=== PATIENT | female | born 1985 | race Caucasian/White ===

== ENCOUNTER 2019-11-06 11:25 | Inpatient (IN) | payer MEDICAID ==
[~2019-11-06] VITALS: Ht 167.6 cm; Wt 66.7 kg
[2019-11-06] MEDS ORDERED: METHYLERGONOVINE 0.2 MG/ML AMP IM PRN (12:15)
[2019-11-06] MEDS ORDERED: CARBOPROST 250 MCG/ML AMP IM PRN (12:15)
[2019-11-06 12:57] VITALS: BP 116/76
[2019-11-06 13:33] LABS: APPEARANCE,URINE HAZY (CLEAR); BILIRUBIN,URINE NEGATIVE (NEGATIVE); BLOOD, URINE NEGATIVE (NEGATIVE); COLOR,URINE YELLOW (YELLOW); LEUKOCYTE ESTERASE ,URINE 1+ (NEGATIVE); NITRITE, URINE NEGATIVE (NEGATIVE); PH,URINE 5.5 (5.0-9.0); UGLUCOSE NEGATIVE (NEGATIVE)
[2019-11-06] MEDS: MISOPROSTOL 25 MCG TAB VG SCH (13:43)
[2019-11-06 13:44] LABS: BASOPHILS % (AUTO) 0.5 % (0.0-2.0); EOSINOPHILS # (AUTO) 0.1 K/uL (0-0.4); HEMATOCRIT 38.2 % (36-48); HEMOGLOBIN 12.6 g/dL (12.0-16.0); LYMPHOCYTES # (AUTO) 1.6 K/uL (2.5-16.5); LYMPHOCYTES % (AUTO) 18.2 % (20.5-51.1); MEAN CORPUSCULAR HEMOGLOBIN 28 pg (27-31); MEAN CORPUSCULAR HGB CONC 33 g/dL (33-37); MONOCYTES # (AUTO) 0.7 K/uL (0.8-1.0); MONOCYTES % (AUTO) 7.3 % (1.7-9.3); NEUTROPHILS # (AUTO) 6.5 K/uL (1.8-7.7); PLATELET COUNT (AUTO) 255 K/uL (140-450); RED BLOOD CELL COUNT(AUTO) 4.49 MIL/uL (4.20-5.40); RED CELL DISTRIBUTION WIDTH 14.3 % (11.6-13.7); WHITE BLOOD COUNT (AUTO) 8.9 K/uL (4.8-10.8)
[2019-11-06 13:49] LABS: BARBITURATE, URINE NEGATIVE ng/ml (NEG <=200); BENZODIAZEPINE, URINE NEGATIVE ng/mL (NEG <=200); CANNABINOID, URINE NEGATIVE ng/mL (NEG <=50); COCAINE, URINE NEGATIVE ng/mL (NEG <=300); OPIATE, URINE NEGATIVE ng/mL (NEG <=2000); PHENCYCLIDINE SCREEN,URINE NEGATIVE ng/mL (NEG <=25)
[2019-11-06 15:28] LABS: RBC,URINE 0-5 /HPF (0-5)
[2019-11-06] MEDS ORDERED: PREN-380 PO (18:06)
[2019-11-06] MEDS ORDERED: ROPIVACAINE 0.2%/NS PREMIX 200 ML EPI ONE (23:06)
[2019-11-06] MEDS: LACTATED RINGERS 1,000 ML IV SCH (23:30)
[2019-11-06] MEDS ORDERED: ROPIVACAINE 0.2%/NS PREMIX 100 ML EPI SCH (23:30)
[2019-11-07] MEDS: MISOPROSTOL 25 MCG TAB VG SCH ×2 (01:29→05:32)
--- NOTE | 2019-11-07 09:25 | NUR ---
PATIENT HAS BEEN SCREENED AND CATEGORIZED LOW NUTRITION RISK. PATIENT WILL BE SEEN WITHIN 7 DAYS OF ADMISSION. 11/13/[address]
[2019-11-07] MEDS: LACTATED RINGERS 1,000 ML IV SCH ×2 (10:57→18:35)
[2019-11-07] MEDS ORDERED: OXYTOCIN 20 UNITS/LR PREMIX 1,000 ML IV ONE ×2 (13:21→19:56)
[2019-11-07] MEDS ORDERED: OXYTOCIN 20 UNITS in LACTATED RINGERS 1,000 ML IV SCH ×2 (13:30→20:40)
[2019-11-07] MEDS ORDERED: CITRIC ACID/SODIUM CITRATE 30 ML UDC PO SCH (17:19)
[2019-11-07] MEDS ORDERED: LIDOCAINE MPF 2% 100 MG/5 ML VIAL INJ ONE (19:54)
[2019-11-07] MEDS ORDERED: MORPHINE PRES FREE 10 MG/10 ML AMP IV ONE (19:54)
[2019-11-07] MEDS ORDERED: ONDANSETRON 4 MG/2 ML VIAL ONE (19:55)
[2019-11-07] MEDS ORDERED: diphenhydrAMINE 50 MG/ML VIAL ONE (19:55)
[2019-11-07] MEDS ORDERED: OXYTOCIN 20 UNITS/LR PREMIX 1,000 ML IV SCH ×2 (20:18→23:17)
[2019-11-07] MEDS ORDERED: ONDANSETRON 4 MG/2 ML VIAL IVP PRN (20:20)
[2019-11-07] MEDS ORDERED: NALOXONE 0.4 MG/ML VIAL IVP PRN ×2 (20:20)
[2019-11-07] MEDS ORDERED: TEMAZEPAM 15 MG CAP PO PRN (20:40)
[2019-11-07] MEDS ORDERED: IBUPROFEN 800 MG TAB PO PRN (20:40)
[2019-11-07] MEDS ORDERED: KETOROLAC 30 MG/ML VIAL IVP PRN (20:40)
[2019-11-07] MEDS ORDERED: METHYLERGONOVINE 0.2 MG/ML AMP IM PRN (20:40)
[2019-11-07] MEDS ORDERED: oxyCODONE/APAP 5/325 MG 1 TAB TAB PO PRN (20:40)
[2019-11-07] MEDS: DOCUSATE SOD/SENNA 50/8.6 MG 1 TAB PO SCH (21:00)
[2019-11-07] MEDS: diphenhydrAMINE 50 MG/ML VIAL IVP PRN (21:20)
--- NOTE | 2019-11-07 21:30 | NUR ---
CALLED FOR . BABY CAME OUT PERFECTLY FINE. BABY MOUTH WAS SX. NO RESPIRATORY INTERVENTION NEED AT THIS TIME.
[2019-11-07] MEDS: KETOROLAC 30 MG/ML VIAL IVP PRN (23:27)
[2019-11-08] MEDS: diphenhydrAMINE 50 MG/ML VIAL IVP PRN (01:28)
[2019-11-08] MEDS ORDERED: AMMONIA AROMATIC 1 INHL INH ONE (06:30)
[2019-11-08 06:41] LABS: BASOPHILS % (AUTO) 0.3 % (0.0-2.0); EOSINOPHILS % (AUTO) 0.3 % (0.0-4.0); HEMATOCRIT 33.9 % (36-48); HEMOGLOBIN 11.2 g/dL (12.0-16.0); LYMPHOCYTES # (AUTO) 1.6 K/uL (2.5-16.5); LYMPHOCYTES % (AUTO) 11.8 % (20.5-51.1); MEAN CORPUSCULAR HEMOGLOBIN 28 pg (27-31); MEAN CORPUSCULAR HGB CONC 33 g/dL (33-37); MEAN CORPUSCULAR VOLUME 84.8 fL (80-94); MONOCYTES # (AUTO) 0.8 K/uL (0.8-1.0); MONOCYTES % (AUTO) 5.9 % (1.7-9.3); NEUTROPHILS # (AUTO) 11.3 K/uL (1.8-7.7); NEUTROPHILS % (AUTO) 81.7 % (42.2-75.2); PLATELET COUNT (AUTO) 226 K/uL (140-450); RED CELL DISTRIBUTION WIDTH 14.1 % (11.6-13.7); WHITE BLOOD COUNT (AUTO) 13.8 K/uL (4.8-10.8)
[2019-11-08] MEDS ORDERED: SODIUM PHOSPHATE 118 ML ENEM RC SCH (09:00)
[2019-11-08] MEDS: KETOROLAC 30 MG/ML VIAL IVP PRN (16:44)
[2019-11-08] MEDS: DOCUSATE SOD/SENNA 50/8.6 MG 1 TAB PO SCH (20:45)
[2019-11-09] MEDS: oxyCODONE/APAP 5/325 MG 1 TAB TAB PO PRN ×3 (06:47→21:27)
[2019-11-09] MEDS: SIMETHICONE 80 MG TAB.CHEW PO PRN ×2 (09:10→17:53)
[2019-11-09] MEDS ORDERED: FERR325E14 PO (17:38)
[2019-11-09] MEDS ORDERED: IBUP-2213 PO (17:39)
[2019-11-09] MEDS ORDERED: ACET-5629 PO (17:42)
[2019-11-09] MEDS ORDERED: CAMERA MC ONE (20:04)
[2019-11-10] MEDS: oxyCODONE/APAP 5/325 MG 1 TAB TAB PO PRN (02:43)
[2019-11-10] MEDS ORDERED: CAMERA MC ONE (03:46)
== END 2019-11-10 15:10 | disposition home or self-care (01) | DRG 540 ==
LOC: MLB 11:25 → EDSTATUS 11:27 → MLD 11:29 → MFCC 11-07 22:45
PROVIDERS: ADMIT Obstetrics & Gynecology; ATTEND Obstetrics & Gynecology
PROC: 10D00Z1 Extraction of Products of Conception, Low, Open Approach (ICD-10-PCS; principal; 2019-11-07 20:00)
PROC: 3E0234Z Introduction of Serum, Toxoid and Vaccine into Muscle, Percutaneous Approach (ICD-10-PCS; 2019-11-10)
DX: O41.03X0 Oligohydramnios, third trimester, not applicable or unspecified (principal); O61.9 Failed induction of labor, unspecified; O69.1XX0 Labor and delivery complicated by cord around neck, with compression, not applicable or unspecified; Z37.0 Single live birth; Z3A.38 38 weeks gestation of pregnancy; Z23 Encounter for immunization
CPT/HCPCS: 36415; 51702; 59200; 80305; 81001; 85025; 86592; 86886; 86900; 86901; 87086; 90715; J0690; J1200; J1885; J2001; J2270; J2405; J2590; J2795; J7060; J7120